=== PATIENT | female | born 1995 | race American Indian/Alaskan Native ===

== ENCOUNTER 2017-12-02 18:19 | Emergency (ER) | payer SELFPAY ==
--- NOTE | 2017-12-02 19:33 | Emergency Department Report ---
Blank Doc - Documentation Documentation: Patient is a 22-year-old female who is presenting with vaginal bleeding. Patient states there was some spotting early this morning that she had an argument with a family member and started to have some slightly heavier bleeding. Patient states there is no cramping or pain. Patient is 11 weeks Patient have ultrasound beta Quant and ABO Rh performed here in the emergency department.
--- NOTE | 2017-12-02 20:08 | Emergency Department Report ---
ED Female HPI - General Chief complaint: Vaginal Bleeding Stated complaint: VAGINAL BLEEDING 11 WKS PREG Time Seen by Provider: 12/02/17 19:28 Source: patient Mode of arrival: Ambulatory Limitations: No Limitations - History of Present Illness Initial comments: Patient is a 22-year-old female who is presenting with vaginal bleeding. Patient states there was some spotting early this morning that she had an argument with a family member and started to have some slightly heavier bleeding. Patient states there is no cramping or pain. Patient is 11 weeks Patient have ultrasound beta Quant and ABO Rh performed here in the emergency department. Complaint: vaginal bleeding Onset/Timin -: days(s) Location: suprapubic Radiation: non-radiating Severity: mild Severity scale (0 -10): 2 Quality: cramping Consistency: intermittent Improves with: none Worsens with: none Are you Now?: Yes Last Menstrual Period: 09/29/17 EDC: 07/06/18 Associated Symptoms: vaginal bleeding, abdominal pain - Related Data Sexually active: Yes : 1 Para: 0 A: 0 Previous Rx's Medication Instructions Recorded Last Taken Type Acetaminophen [Mapap] 1,000 mg PO QID PRN #60 tablet 12/02/17 Unknown Rx Allergies Allergy/AdvReac Type Severity Reaction Status Date / Time shellfish derived Allergy Swelling Verified 12/02/17 18:21 ED Review of Systems ROS: Stated complaint: VAGINAL BLEEDING 11 WKS PREG Other details as noted in HPI Constitutional: denies: chills, fever Eyes: denies: eye pain, eye discharge, vision change ENT: denies: ear pain, throat pain Respiratory: denies: cough, shortness of breath, wheezing Cardiovascular: denies: chest pain, palpitations Endocrine: no symptoms reported Gastrointestinal: abdominal pain (cramping ). denies: nausea, vomiting, diarrhea, constipation, hematemesis, melena, hematochezia Genitourinary: other (vaginal bleeding and cramping ) Musculoskeletal: denies: back pain, joint swelling, arthralgia Skin: denies: rash, lesions Neurological: denies: headache, weakness, paresthesias Psychiatric: denies: anxiety, depression Hematological/Lymphatic: denies: easy bleeding, easy bruising ED Past Medical Hx - Past Medical History Previous Medical History?: No - Surgical History Past Surgical History?: No - Social History Smoking Status: Never Smoker Substance Use Type: None - Medications Home Medications: Home Medications Medication Instructions Recorded Confirmed Last Taken Type Acetaminophen [Mapap] 1,000 mg PO QID PRN #60 tablet 12/02/17 Unknown Rx ED Physical Exam - General Limitations: No Limitations General appearance: alert, in no apparent distress - Head Head exam: Present: atraumatic, normocephalic - Eye Eye exam: Present: normal appearance - ENT ENT exam: Present: mucous membranes moist - Neck Neck exam: Present: normal inspection - Respiratory Respiratory exam: Present: normal lung sounds bilaterally. Absent: respiratory distress - Cardiovascular Cardiovascular Exam: Present: regular rate, normal rhythm. Absent: systolic murmur, diastolic murmur, rubs, gallop - GI/Abdominal GI/Abdominal exam: Present: soft, normal bowel sounds. Absent: distended, tenderness, guarding, rebound, rigid, organomegaly, mass, bruit, pulsatile mass , hernia - Rectal Rectal exam: Present: deferred - External exam: Present: other (exam deferred to obgyn per patient ) - Extremities Exam Extremities exam: Present: normal inspection, full ROM - Back Exam Back exam: Present: normal inspection, full ROM. Absent: tenderness, CVA tenderness (R), CVA tenderness (L), muscle spasm, paraspinal tenderness, vertebral tenderness, rash noted - Neurological Exam Neurological exam: Present: alert, oriented X3 - Psychiatric Psychiatric exam: Present: normal affect, normal mood - Skin Skin exam: Present: warm, dry, intact, normal color. Absent: rash ED Course Vital Signs 12/02/17 18:21 Temperature 98.5 F Pulse Rate 100 H Respiratory 18 Rate Blood Pressure 119/76 O2 Sat by Pulse 100 Oximetry ED Medical Decision Making - Lab Data Laboratory Tests 12/02/17 12/02/17 12/02/17 19:41 19:41 21:27 HCG, Quant 9378 H Urine Color Yellow Urine Turbidity Clear Urine pH 5.0 Ur Specific [place] 1.026 Urine Protein 30 mg/dl Urine Glucose (UA) Neg Urine Ketones Neg Urine Blood Lg Urine Nitrite Neg Urine Bilirubin Neg Urine Urobilinogen 2.0 Ur Leukocyte Esterase Tr Urine WBC (Auto) 8.0 H Urine RBC (Auto) 7.0 U Epithel Cells (Auto) 19.0 H Urine Mucus 2+ Blood Type A POSITIVE - Radiology Data Radiology results: report reviewed, image reviewed interpreted by me: no intrauterine gestational sc, no viable intrauterine gestation supsp demise - Medical Decision Making Patient is a 22-year-old female who is presenting with vaginal bleeding. Patient states there was some spotting early this morning that she had an argument with a family member and started to have some slightly heavier bleeding. Patient states there is no cramping or pain. Patient is 11 weeks Patient have ultrasound beta Quant and ABO Rh performed here in the emergency department. Patientappears well nontoxic abdomen bowel sounds normal soft nontender no rebound no bruit no hernia no CVA tenderness mild suprapubic tenderness to palpation patient defers vaginal exam to FLANGING ROLL OPERATOR states was C FLANGING ROLL OPERATOR on Tuesday 2 days from now there is no abdominal pain no nausea no vomiting no fever no chills hCG 9300 ua: blood consistent with menses, pulmonary ultrasound less than 14 weeks no intrauterine likely demise discussed finding with patient includes and demise threatened and likely miscarriage patient again refuses vaginal exam will follow with OB/ FLANGING ROLL OPERATOR in 2 days prior to patient discharged to home in stable condition at this time, patient states bleeding is minimal dark red using 1-2 past daily. Critical care attestation.: If time is entered above; I have spent that time in minutes in the direct care of this critically ill patient, excluding procedure time. ED Disposition Clinical Impression: Miscarriage, Threatened miscarriage Disposition: - TO HOME OR SELFCARE Is pt being admited?: No Does the pt Need Aspirin: No Condition: Good Instructions: Spontaneous Miscarriage (ED), Threatened Miscarriage (ED) Prescriptions: Acetaminophen [Mapap] 1,000 mg PO QID PRN #60 tablet PRN Reason: Pain Referrals: [facility] [Provider Group] - 3-5 Days Forms: Work/School Release Form(ED) Time of Disposition: 22:54
[2017-12-02 21:42] LABS: Bilirubin,Urine NEG (Negative); Blood,Urine LG (Negative); Color,Urine Yellow (Yellow); Mucus,Urine 2+ /HPF
--- NOTE | 2017-12-02 21:45 | Ultrasound Report ---
FINAL REPORT EXAM: US OB TRANSVAGINAL HISTORY: vag bleed 11 weeks by dates TECHNIQUE: Ultrasound obstetrical transvaginal PRIORS: None. FINDINGS: There is gestational sac present within the uterus with mean sac diameter 4.2 centimeters corresponding to estimated gestational age by sac size of 9 weeks 6 days A definitive pole is not identified. There is a small echogenic focus 0.43 centimeters present which could reflect a pole with no evidence for cardiac activity. No yolk sac is identified. A possible pole seen would correspond to estimated gestational age of 6 weeks 1 day No free fluid identified in the cul-de-sac Right ovary is 2.9 x 1.9 x 2.2 centimeters left ovary is 2.7 x 1.4 x 2.7 centimeters Noted is 1 centimeter mildly complex right ovarian cyst. IMPRESSION: Intrauterine gestational sac. No viable intrauterine gestation identified suspect demise Mildly complex 1 centimeter right ovarian cyst noted
--- NOTE | 2017-12-02 21:50 | Ultrasound Report ---
FINAL REPORT EXAM: US OB < = 14 WEEKS FETUS HISTORY: vag bleed 11 weeks by dates TECHNIQUE: Ultrasound obstetrical transabdominal PRIORS: Correlated with today's transvaginal exam FINDINGS: There is gestational sac present within the uterus with mean sac diameter 4.2 centimeters corresponding to estimated gestational age by sac size of 9 weeks 6 days A definitive pole is not identified. There is a small echogenic focus 0.43 centimeters present which could reflect a pole with no evidence for cardiac activity. No yolk sac is identified. A possible pole seen would correspond to estimated gestational age of 6 weeks 1 day No free fluid identified in the cul-de-sac Right ovary is 2.9 x 1.9 x 2.2 centimeters left ovary is 2.7 x 1.4 x 2.7 centimeters Noted is 1 centimeter mildly complex right ovarian cyst. IMPRESSION: Intrauterine gestational sac. No viable intrauterine gestation identified suspect demise Mildly complex 1 centimeter right ovarian cyst noted
[2017-12-02 23:11] VITALS: BP 120/82
== END 2017-12-02 23:11 | disposition home or self-care (01) ==
LOC: ED 18:19
DX: O20.0 Threatened abortion (principal); Z3A.11 11 weeks gestation of pregnancy; Z91.013 Allergy to seafood
CPT/HCPCS: 36415; 76801; 76817; 81001; 84702; 86900; 86901; 99284

== ENCOUNTER 2017-12-04 09:24 | Emergency (ER) | payer SELFPAY ==
--- NOTE | 2017-12-04 10:02 | Emergency Department Report ---
HPI - General Chief Complaint: Vaginal Bleeding Time Seen by Provider: 12/04/17 09:36 - HPI HPI: 22-year-old [place] female presents to the emergency department with a complaint of increased bleeding and some lower abdominal and/or pelvic discomfort that appears to be worsening of a threatened or incomplete miscarriage. The patient was here 2 days ago and had a beta hCG of 9300, an ultrasound that showed a gestational sac without any other evidence of intrauterine concerning for demise, and was discharged home with the diagnosis of threatened miscarriage. With this she is . She does not have an DIRECTOR OF ENTERPRISE STRATEGY. She denies any past medical history. She's been using some Tylenol for discomfort but otherwise has not taken anything else for her symptoms. She says that there were 2 episodes today where there is a large amount of bleeding vaginally with clots. ED Past Medical Hx - Past Medical History Previous Medical History?: No - Surgical History Past Surgical History?: No - Social History Smoking Status: Never Smoker Substance Use Type: None - Medications Home Medications: Home Medications Medication Instructions Recorded Confirmed Last Taken Type Acetaminophen [Mapap] 1,000 mg PO QID PRN #60 tablet 12/02/17 Unknown Rx ED Review of Systems ROS: Stated complaint: ABD PAIN/11 WKS PREG/POSS MISCARRIAGE Other details as noted in HPI Comment: All other systems reviewed and negative Constitutional: denies: chills, fever Eyes: denies: eye pain, eye discharge, vision change ENT: denies: ear pain, throat pain Respiratory: denies: cough, shortness of breath, wheezing Cardiovascular: denies: chest pain, palpitations Gastrointestinal: denies: vomiting, diarrhea Genitourinary: other (vaginal bleeding, pelvic cramping). denies: urgency, dysuria, discharge Musculoskeletal: denies: back pain, joint swelling, arthralgia Skin: denies: rash, lesions Neurological: denies: headache, weakness, paresthesias Physical Exam - Physical Exam Vital Signs: Vital Signs 12/04/17 09:44 Temperature 98.8 F Pulse Rate 88 Respiratory 18 Rate Blood Pressure 103/58 [Right] O2 Sat by Pulse 97 Oximetry Physical Exam: GENERAL: The patient is well-developed well-nourished. HENT: Normocephalic. Atraumatic. Patient has moist mucous membranes. EYES: Extraocular motions are intact. Pupils equal reactive to light bilaterally. NECK: Supple. Trachea is midline. CHEST/LUNGS: Clear to auscultation. There is no respiratory distress noted. HEART/CARDIOVASCULAR: Regular. There is no tachycardia. There is no murmur. ABDOMEN: Abdomen is soft, nontender. Patient has normal bowel sounds. There is no abdominal distention. SKIN: Skin is warm and dry. NEURO: The patient is awake, alert, and oriented. The patient is cooperative. The patient has no focal neurologic deficits. The patient has normal speech. MUSCULOSKELETAL: There is no tenderness or deformity. There is no limitation range of motion. There is no evidence of acute injury. : Deferred ED Course Vital Signs 12/04/17 09:44 Temperature 98.8 F Pulse Rate 88 Respiratory 18 Rate Blood Pressure 103/58 [Right] O2 Sat by Pulse 97 Oximetry - Consultations Consultation #1: I spoke with the basic acoustic analyst, Nahed, for the [facility] service precision farming specialist. She listened to the patient's presentation, lab results and agrees that the patient appears to be in the middle of her miscarriage. There are no new medications that are recommended but she suggests that the patient should return to the emergency department if she begins to bleed more than 1 pad per hour. 12/04/17 11:50 ED Medical Decision Making - Lab Data Result diagrams: 12/04/17 10:05 - Medical Decision Making Patient was here 2 days ago and was diagnosed with spontaneous miscarriage versus threatened miscarriage and had a beta hCG of 9300 at that time. She is here today because she has increase in bleeding and has some pelvic cramping. Her CBC shows a stable hemoglobin of 11. Her beta hCG is down to about 4000 from 48 hours ago. Vital signs stable including being afebrile. The patient does appear to be passing some large clots but otherwise does not appear to have any hemorrhage. She was given a little bit of IV fluid and was given a single [place] for discomfort. She is returning to [place] today and has been encouraged to follow up with an DIRECTOR OF ENTERPRISE STRATEGY as soon as possible. However she will return to the closest emergency department if she develops worsening of her symptoms or starts to bleed more than 1 pad per hour. The patient understands and agrees with the plan. - Differential Diagnosis spontaneous miscarriage, malignancy, fibroids Critical Care Time: No Critical care attestation.: If time is entered above; I have spent that time in minutes in the direct care of this critically ill patient, excluding procedure time. ED Disposition Clinical Impression: Miscarriage Disposition: DC-01 TO HOME OR SELFCARE Is pt being admited?: No Condition: Stable Instructions: Spontaneous Miscarriage (ED) Additional Instructions: Please follow up with an DIRECTOR OF ENTERPRISE STRATEGY once returning to [place] today or tomorrow. Please return to emergency department with any worsening of your symptoms, especially if you begin to bleed to the point where you are using at least 1 pad per hour, or with any acute distress. Referrals: PRIMARY CARE, [Primary Care Provider] - [facility] Time of Disposition: 11:38
[2017-12-04] MEDS ORDERED: NACL 0.9% 1000 ML 1,000 ML ONE (10:13)
[2017-12-04] MEDS ORDERED: NACL 0.9% 1000 ML 1,000 ML IV ONE (10:27)
[2017-12-04 10:30] LABS: Basophils % (Auto) 0.1 % (0.0-1.8); Hematocrit 32.7 % (30.3-42.9); Lymphocytes # (Auto) 1.2 K/mm3 (1.2-5.4); Lymphocytes % (Auto) 7.5 % (13.4-35.0); Mean Corpuscular HGB Conc 34 % (30-34); Mean Corpuscular Hemoglobin 29 pg (28-32); Mean Corpuscular Volume 86 fl (79-97); Monocytes # (Auto) 0.9 K/mm3 (0.0-0.8); Monocytes % (Auto) 5.2 % (0.0-7.3); Platelet Count 265 K/mm3 (140-440); Red Cell Distribution Width 13.5 % (13.2-15.2)
[2017-12-04] MEDS ORDERED: NORCO 5/325 PO ONE (11:38)
[2017-12-04 12:33] VITALS: BP 101/54
== END 2017-12-04 12:32 | disposition home or self-care (01) ==
LOC: ED 09:24
DX: O03.9 Complete or unspecified spontaneous abortion without complication (principal); Z3A.00 Weeks of gestation of pregnancy not specified
CPT/HCPCS: 36415; 84702; 85025; 86850; 86900; 86901; 96360; 99284; J7030